=== PATIENT | female | born 1975 | race Caucasian/White ===

== ENCOUNTER 2016-06-30 19:39 | Emergency (ER) | payer OTHER ==
[~2016-06-30 19:39] MED LIST: CETIRIZINE HCL10 MG PO; FLEXERIL10 MG PO; INDERAL20 MG PO; LIPITOR 10MG TA10 MG PO; MAXALT10 MG PO; NEURONTIN400 MG PO; PHENERGAN12.5 M1 PO; PROTONIX 40MG T40 MG PO; QUINAPRIL-HCTZ1 EAC1 PO; TOPAMAX100 MG PO; ZANTAC150 MG PO
[2016-06-30 21:31] LABS: BILIRUBIN 1+ mg/dL (NEGATIVE); BLOOD NEGATIVE Ery/uL (NEGATIVE); CLARITY CLEAR (CLEAR); COLOR YELLOW (YELLOW); GLUCOSE (U) NORMAL (NORMAL); KETONE (U) 1+ (SMALL) mg/dL (NEGATIVE); LEUKOCYTES NEGATIVE Leu/uL (NEGATIVE); NITRITE NEGATIVE (NEGATIVE); PROTEIN NEGATIVE (NEGATIVE); SPECIFIC GRAVITY >=1.030 (1.001-1.030); UROBILINOGEN 0.2 mg/dL (0.2-1.0)
[2016-06-30 21:42] LABS: BASOPHIL 0.4 % (0-2); EOSINOPHIL 1.6 % (0-5); HCT 44.8 % (37.0-47.0); HGB 15.1 g/dl (12.5-16.0); LYMPHOCYTE 20.5 % (15-48); MCH 29.7 pg (25.0-31.0); MCHC 33.7 g/dL (32.0-36.0); MCV 88.2 fL (78.0-100.0); MONOCYTE 5.4 % (0-12); MPV 9.8 fL (6.0-9.5); NEUTROPHIL 72.1 % (41-80); PLT 301 K/uL (150-400); RBC 5.08 M/uL (4.20-5.40); RDW 12.9 % (11.5-14.0)
[2016-06-30 21:45] LABS: LACTIC ACID 1.2 mmol/L (0.5-2.2)
[2016-06-30 21:48] LABS: ALBUMIN 4.6 g/dL (3.5-5.0); BILIRUBIN - TOTAL 0.4 mg/dL (0.1-1.0); CREATININE 1.1 mg/dL (0.5-1.0); GLOBULIN (CALCULATION) 2.7 g/dL (2.2-4.2); POTASSIUM 3.5 mmol/L (3.5-5.1); TOTAL PROTEIN 7.3 g/dL (6.4-8.3)
== END 2016-06-30 23:35 | disposition home or self-care (01) ==
LOC: FER 19:39
PROVIDERS: Emergency Medicine
DX: R10.9 Unspecified abdominal pain (principal); R11.2 Nausea with vomiting, unspecified; R19.7 Diarrhea, unspecified; I10 Essential (primary) hypertension; K21.9 Gastro-esophageal reflux disease without esophagitis; Z88.0 Allergy status to penicillin; Z88.5 Allergy status to narcotic agent; Z79.899 Other long term (current) drug therapy; Z98.890 Other specified postprocedural states
CPT/HCPCS: 36415; 74022; 80053; 81003; 82150; 83605; 83690; 85025; J2270; J2405